=== PATIENT | male | born 1985 | race Caucasian/White ===

== ENCOUNTER 2017-12-12 15:00 | Emergency (ER) | payer BC ==
[2017-12-12 15:50] VITALS: BP 150/91
--- NOTE | 2017-12-12 16:01 | UC ---
Eye Complaint HPI - HPI Summary HPI Summary: 32 y/o male presents to the urgent care c/o RT eye redness w/ yellowish drainage on and off for the past 2 weeks. Pt reports he was in contact w/ somone who had a severe conjunctivitis about 2 weeks ago. Then he developed it and he though it was getting better. But this week when he put his eye contact lenses back eye redness returned. He removed the contact again and this morning he woke up w/ a lot of yellowish drainage. Pt denies photophobia, URI,visual disturbance, eye pain, SOB, chest pain, abdominal pain, N/V/D. - History of Current Complaint Chief Complaint: UCEye Stated Complaint: EYE COMPLAINT Time Seen by Provider: 12/12/17 16:01 Hx Obtained From: Patient Onset/Duration: Gradual Onset, Lasting Weeks - 2 weeks, Still Present, Worse Since - 2 days Timing: Constant Severity Initially: Mild Severity Currently: Mild Pain Intensity: 2 Pain Scale Used: 0-10 Numeric Location of Injury: Conjunctiva - RT Character: Foreign Body Sensation Aggravating Factor(s): Blinking Alleviating Factor(s): Nothing Associated Signs And Symptoms: Positive: Drainage (Purulent) - yellowish. Negative: Photophobia, Vision Impairment Bilateral, Vision Impairment Right, Vision Impairment Left - Risk Factors Penetrating Injury Risk Factor: Negative Globe Rupture Risk Factors: Negative Acute Glaucoma Risk Factors: Negative Optic Artery Occlusion Risk Factors: Negative - Allergies/Home Medications Allergies/Adverse Reactions: Allergies Allergy/AdvReac Type Severity Reaction Status Date / Time No Known Allergies Allergy Verified 12/12/17 15:50 PMH/Surg Hx/FS Hx/Imm Hx Previously Healthy: Yes Respiratory History: Asthma - Surgical History Surgical History: None - Social History Alcohol Use: Daily Substance Use Type: None Smoking Status (MU): Never Smoked Tobacco Review of Systems Constitutional: Negative Skin: Negative Eyes: Drainage - yellowish, Eye Redness - RT eye ENT: Negative Respiratory: Negative Cardiovascular: Negative Gastrointestinal: Negative Genitourinary: Negative Motor: Negative Neurovascular: Negative Musculoskeletal: Negative Neurological: Negative Psychological: Negative Is Patient Immunocompromised?: No All Other Systems Reviewed And Are Negative: Yes Physical Exam - Summary Physical Exam Summary: Vital Signs Reviewed: Yes General: Well appearing, well nourishedmale in no apparent pain distress Eyes: Positive: RT Conjunctiva Inflamed - Visual acuity: WNL,Visual holguin: full to confrontation. PERRLA, EOMI intact w/out limitation or complaint of pain. eyelashes clear. mild tearing and yellowish drainage observed on Rt eye. No ciliary flush. No chemosis, No photophobia. Normal fundoscopic exam; no proptosis, exophthalmos, nystagmus. ENT: Positive: Normal ENT inspection, Hearing grossly normal, Pharynx normal, Nasal congestion, Nasal drainage - clear, TMs normal - B/L external ear canal clear , TM's WNL. Negative: Tonsillar swelling, Tonsillar exudate Neck: Positive: Supple, Nontender, No Lymphadenopathy Respiratory: Positive: Chest nontender, Lungs clear, Normal breath sounds, No respiratory distress Cardiovascular: Positive: RRR, No Murmur, Pulses Normal, Brisk Capillary Refill Abdomen Description: Positive: Nontender, No Organomegaly, Soft. Negative: CVA Tenderness (R), CVA Tenderness (L) Bowel Sounds: Positive: Present Musculoskeletal: Positive: Strength Intact, ROM Intact, No Edema Neurological Exam: Normal Psychological Exam: Normal Skin Exam: Normal Triage Information Reviewed: Yes Vital Signs: Initial Vital Signs Temp 98.5 F 12/12/17 15:45 Pulse 76 12/12/17 15:45 Resp 16 12/12/17 15:45 BP 150/91 12/12/17 15:45 Pulse Ox 99 12/12/17 15:45 Eye Complaint Course/Dx - Course Course Of Treatment: 32 y/o male presents to the urgent care c/o RT eye redness w/ yellowish drainage on and off for the past 2 weeks. Pt reports he was in contact w/ somone who had a severe conjunctivitis about 2 weeks ago. Then he developed it and he though it was getting better. But this week when he put his eye contact lenses back eye redness returned. He removed the contact again and this morning he woke up w/ a lot of yellowish drainage. Pt denies photophobia, URI,visual disturbance, eye pain, SOB, chest pain, abdominal pain, N/V/D. Hx obtained. Pt w/ RT eye bacterial conjuntivitis on eexamination. Pt Rx Polytrim ophthalmic drops and advised not to wear contact lenses until symptoms copletely resolve and if symptoms do not improve or worsen to f/u with PCP in 3 days. Pt's BP is elevated today advised to decrease salt in diet, monitor BP and f/u with PCP for further management. Pt understood and agreed w / plan of care. - Differential Dx/Diagnosis Differential Diagnosis/HQI/PQRI: Conjunctivitis, Keratitis, Periorbital Cellulitis, Uveitis Provider Diagnoses: 1- RT eye bacterial conjunctivitis. 2-Elevated BP w/o Hx of HTN Discharge - Sign-Out/Discharge Documenting (check all that apply): Patient Departure - D/c home All imaging exams completed and their final reports reviewed: No Studies - Discharge Plan Condition: Stable Disposition: HOME Prescriptions: Polymyx/Trimethoprim OPTH* [Polytrim OPHTH*] 1 drop RIGHT EYE Q3H #1 btl Patient Education Materials: Low-Sodium Diet (ED), Conjunctivitis (ED) Referrals: Kaye WOO,Evelin [Primary Care Provider] - 3 Days Additional Instructions: 1-Please apply ophthalmic drops as directed on your Rt eye. Encourage hand washing to avoid spread 2- Please do no wear your contact lenses until symptoms resolve. 3- If no improvement of symptoms please return to the urgent care or your PCP for further management. 4- Your BP is elevated today, please decrease ssalt in your diet and monitor your BP and if it continues to be elevated please f/u w/ your PCP for further management - Billing Disposition and Condition Condition: STABLE Disposition: Home
== END 2017-12-12 16:28 | disposition home or self-care (01) ==
LOC: UCCORT 15:00
DX: H10.89 Other conjunctivitis (principal); R03.0 Elevated blood-pressure reading, without diagnosis of hypertension
CPT/HCPCS: 99202; G0463